=== PATIENT | male | born 1955 | race African-American/Black ===

== ENCOUNTER 2018-01-02 05:34 | Emergency (ER) | payer OTHER ==
[~2018-01-02] VITALS: Ht 182.9 cm; Wt 89.4 kg
[~2018-01-02 05:34] MED LIST: ADVAIR 250-501 EACH INH; ALBUTEROL2.5 MG/3 M INH/SOL; AMOXICILLIN875 M1 PO; ASPIRIN EC81 M1 PO; IMODIUM A-D2 M1 PO; NIASPAN500 M1 PO; PREDNISONE20 M1 PO; PROAIR HFA8.5 GM INH; SPIRIVA18 MCG INH
[2018-01-02 05:47] VITALS: BP 128/80
--- NOTE | 2018-01-02 06:02 | ED GENERAL ADULT ---
History of Present Illness General Chief Complaint: General Adult Stated Complaint: "HIT L SIDE AT WORK LAST NIGHT" PAINFUL PER PT Source: patient Exam Limitations: no limitations Vital Signs & Intake/Output Vital Signs & Intake/Output Vital Signs Date Time Temp Pulse Resp B/P B/P Pulse O2 O2 Flow FiO2 Mean Ox Delivery Rate 01/02 0547 94 Room Air Room Air 01/02 547 99.0 84 18 128/80 94 Room Air Room Air Allergies Coded Allergies: No Known Allergies (04/12/16) Reconcile Medications Albuterol Sulfate 2.5 MG/3 ML VIAL.NEB 1 Vial INH/TINY Q4P PRN wheezing Albuterol Sulfate (Proair Hfa) 8.5 GM HFA.AER.AD 2-4 PUF INH Q4-6 PRN PRN shortness of breath Amoxicillin 875 MG TABLET 1 TAB PO BID bronchitis Aspirin (Ecotrin*) 81 MG TABLET.DR 1 TAB PO DAILY . (Reported) Fluticasone/Salmeterol (Advair 250-50 Diskus) 1 EACH BLST.W.DEV 1 PUF INH BID . (Reported) Loperamide HCl (Imodium A-D) 2 MG TABLET 0 PO SEE ADMIN CRITERIA PRN diarrhea 1 tab after each loose stool up to 7 per day Niacin (Niaspan) 500 MG TAB.ER.24H 1 TAB PO QPM . (Reported) Prednisone 20 MG TABLET 1 TAB PO BID bronchitis Tiotropium [place] (Spiriva) 18 MCG CAP.W.DEV 1 CAP INH DAILY . 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 NO BRUISING PRESENT. Triage Nurses Notes Reviewed? yes Onset: Abrupt Duration: day(s): Timing: recent history Injury Environment: work Severity: mild, moderate Modifying Factors: Improves With: medication. Worsens With: movement. Associated Symptoms: left sided rib pain HPI: 62 yo gentleman in prior good health presents with left sided rib cage tenderness. "I was working and pulled this roller machine that hit my left ribs.... occured last night... and then this morning my ribs were really sore... worse with taking a deep breath." He is otherwise well, without dizziness, radiation, chills, syncopal symptoms. Past History Travel History Traveled to [place] past 21 day No Medical History Any Pertinent Medical History? see below for history Respiratory: COPD, emphysema Tetanus Vaccine: Surgical History Surgical History: non-contributory Psychosocial History Who do you live with Family What is your primary language Azeri Tobacco Use: Quit >30 days ago Family History Hx Contributory? No Review of Systems Review of Systems Constitutional: Reports: no symptoms. EENTM: Reports: no symptoms. Respiratory: Reports: no symptoms. Cardiovascular: Reports: no symptoms. GI: Reports: no symptoms. Genitourinary: Reports: no symptoms. Musculoskeletal: Reports: no symptoms. Skin: Reports: no symptoms. Neurological/Psychological: Reports: no symptoms. Hematologic/Endocrine: Reports: no symptoms. Immunologic/Allergic: Reports: no symptoms. All Other Systems: Reviewed and Negative Physical Exam Physical Exam General Appearance: well developed/nourished, mild distress Head: atraumatic, normal appearance Eyes: Bilateral: normal appearance. Ears, Nose, Throat: normal pharynx, normal ENT inspection Neck: normal inspection, supple, full range of motion Respiratory: left sided rib cage tenderness to palpation. Cardiovascular: regular rate/rhythm Gastrointestinal: normal bowel sounds, soft, non-tender Back: normal inspection Extremities: normal inspection Neurologic/Psych: no motor/sensory deficits, awake, alert, oriented x 3 Skin: intact, normal color, warm/dry Core Measures ACS in differential dx? No CVA/TIA Diagnosis: No Sepsis Present: No Sepsis Focused Exam Completed? No Progress Differential Diagnoses I considered the following diagnoses in my evaluation of the patient: rib injury vs fx. Plan of Care: Orders Procedure Date/time Status EKG 01/02 629 Active Diagnostic Imaging: Viewed by Me: Radiology Read. Discussed w/RAD: Radiology Read. Radiology Impression: PATIENT: NIKKI OVALLES II PRESENT AGE: 62 PATIENT ACCOUNT NO: [id number] : 56 LOCATION: [facility] ORDERING PHYSICIAN: Jadon Ackerman MD SERVICE DATE: 01/02/18 EXAM TYPE: RAD - XRY-RIBS UNILATERAL-LEFT EXAMINATIONS: CHEST 1 VIEW AND LEFT RIBS CLINICAL INFORMATION: Left-sided pain. COMPARISON: December 29, 2016. TECHNIQUE : A PA radiograph of the chest was obtained in addition to several views of the left ribs. FINDINGS: The cardiac silhouette is not enlarged. The mediastinal and hilar contours are unremarkable. There are neither pleural effusions nor pneumothoraces. There are no consolidations. The osseous structures are unremarkable. Specifically, no rib fractures are identified. IMPRESSION: No evidence for acute disease. Specifically, no rib fractures identified. DICTATED BY: Sudhakar Perea MD DATE/TIME DICTATED:01/02/18632 HAND FUNNEL COATER: JULIANNE DATE/TIME TRANSCRIBED:01/02/18632 CONFIDENTIAL, DO NOT COPY WITHOUT APPROPRIATE AUTHORIZATION. <Electronically signed in Other Vendor System> SIGNED BY: Sudhakar Perea MD 01/02/18636 Initial ED EKG: normal axis, normal intervals, normal p-waves, normal QRS complex, normal sinus rhythm Departure Departure Disposition: HOME OR SELF CARE Condition: Stable Clinical Impression Primary Impression: Rib injury Referrals: Tim MCCRAY,Chandra Pérez (PCP/Family) Departure Forms: Customer Survey General Discharge Information Comments 01/02/18, 6:50am... rib xray is negative for fx... discussed at length. pt safe for discharge. Critical Care Note Critical Care Note Critical Care Time: non-applicable
--- NOTE | 2018-01-02 06:37 | RADIOLOGY REPORT ---
EXAMINATIONS: CHEST 1 VIEW AND LEFT RIBS CLINICAL INFORMATION: Left-sided pain. COMPARISON: December 29, 2016. TECHNIQUE: A PA radiograph of the chest was obtained in addition to several views of the left ribs. FINDINGS: The cardiac silhouette is not enlarged. The mediastinal and hilar contours are unremarkable. There are neither pleural effusions nor pneumothoraces. There are no consolidations. The osseous structures are unremarkable. Specifically, no rib fractures are identified. IMPRESSION: No evidence for acute disease. Specifically, no rib fractures identified.
== END 2018-01-02 06:51 ==
LOC: ERH 05:34
DX: S29.091A Other injury of muscle and tendon of front wall of thorax, initial encounter (principal); W22.01XA Walked into wall, initial encounter; Y92.89 Other specified places as the place of occurrence of the external cause; Y93.89 Activity, other specified
CPT/HCPCS: 71100-LT; 93005; 93010